=== PATIENT | male | born 1995 | race Caucasian/White ===

== ENCOUNTER 2020-06-27 08:34 | Emergency (ER) | payer BC, SELFPAY ==
[2020-06-27 09:03] LABS: Bilirubin Negative (Negative); Blood, Urine Large (Negative); Clarity Clear (Clear); Glucose, Urine (Dipstick) Negative (Negative); Ketone, Urine Negative (Negative); Leukocyte Negative (Negative); Nitrite Negative (Negative); Protein, Urine (Dipstick) 30 mg/dL (Neg-Trace); Specific Gravity, Urine 1.015 (1.005-1.030); Urobilinogen 0.2 mg/dL (Less than 2)
[2020-06-27] MEDS ORDERED: Naproxen 500 MG TAB ONE (09:05)
[2020-06-27 09:15] LABS: Squamous Epithelial 0-3 HPF (0-3); WBC/HPF 0-3 HPF (0-3)
--- NOTE | 2020-06-27 09:28 | CT ---
CT Stone Protocol History: Right flank pain with urinary urgency Comparison: None. Findings: Lung bases are clear. No pericardial effusion. Partially obstructing 2 x 3 mm calculus distal right ureter 3 cm from the rectosigmoid junction. No s ignificant perinephric stranding. Minimal fullness of the right ureter. No dilated loops of large or small bowel. The appendix is visualized and is normal. The aortoiliac co ntour is normal. No other renal calculi are present. Noncontrast evaluation of the spleen, pancreas, liver, gallbladde r and adrenal glands are all normal. No osseous abnormality. Impression: Minimally obstructing distal right 2 x 3 mm ureteral calculus 3 cm from the ureterovesicu lar junction.
[2020-06-27] MEDS ORDERED: Tamsulosin HCl 0.4 MG CAP ONE (09:43)
[2020-06-27] MEDS ORDERED: Sodium Chloride 0.9% 1,000 ML ONE (10:56)
== END 2020-06-27 10:20 | disposition home or self-care (01) ==
LOC: NAV ERS 08:34
DX: N20.1 Calculus of ureter (principal); F17.200 Nicotine dependence, unspecified, uncomplicated
CPT/HCPCS: 74176; 81003; 81015; J7050